=== PATIENT | female | born 1980 | race Caucasian/White ===

== ENCOUNTER 2016-09-11 18:36 | Emergency (ER) | payer OTHER | END 2016-09-11 23:50 | disposition home or self-care (01) | LOC: ER 18:36 | DX: M94.0 Chondrocostal junction syndrome [Tietze] (principal); F31.9 Bipolar disorder, unspecified; Z90.49 Acquired absence of other specified parts of digestive tract; Z90.710 Acquired absence of both cervix and uterus; Z79.899 Other long term (current) drug therapy; Z88.1 Allergy status to other antibiotic agents; Z88.5 Allergy status to narcotic agent | CPT/HCPCS: 36415; 96361; 96374; 96375; 96376 ==

== ENCOUNTER 2016-10-19 21:51 | Emergency (ER) | payer OTHER | END 2016-10-19 23:55 | disposition home or self-care (01) | LOC: ER 21:51 | DX: S39.012A Strain of muscle, fascia and tendon of lower back, initial encounter (principal); M46.1 Sacroiliitis, not elsewhere classified; J44.9 Chronic obstructive pulmonary disease, unspecified; F31.9 Bipolar disorder, unspecified; F17.210 Nicotine dependence, cigarettes, uncomplicated; Z90.49 Acquired absence of other specified parts of digestive tract; Z90.710 Acquired absence of both cervix and uterus; Z79.899 Other long term (current) drug therapy; Z88.1 Allergy status to other antibiotic agents; Z88.5 Allergy status to narcotic agent; X50.9XXA Other and unspecified overexertion or strenuous movements or postures, initial encounter; Y92.009 Unspecified place in unspecified non-institutional (private) residence as the place of occurrence of the external cause | CPT/HCPCS: 96372; J1885 ==